=== PATIENT | female | born 2000 | race African-American/Black ===

== ENCOUNTER 2022-06-11 12:34 | Emergency (ER) | payer MEDICAID, SELFPAY ==
[2022-06-11 13:11] VITALS: BP 102/38; PULSE 62; RESP 16; TEMP 36.2; O2SAT 98; BMI 19.8
--- OUTSIDE RECORDS SUMMARY | 2022-06-11 14:29 | XMS_ITS | Continuity of Care Document ---
:2000 Author Organization [facility] Address [address] [place] [id number]- Care Team Providers Name Role Phone Not on Staff, PCP Primary Care Physician Unavailable Encounter [facility] Date(s): 08/25/19 - 08/25/[address] [address]- [facility] Attending Physician: Santos CORMIER, Lori Knowles Allergies, Adverse Reactions, Alerts No Known Medication Allergies Medications Flagyl 500 mg oral tablet 1 tablet = 500 mg, By Mouth, Every 12 hours, # 14 tablet, 0 Refills, Maintenance, 02/18/17 0:20:40, Tablet Start Date: 02/18/17 Stop Date: 02/25/17 Status: OrderedFlagyl 500 mg oral tablet 1 tablet = 500 mg, By Mouth, Every 12 hours, # 14 tablet, 0 Refills, Maintenance, 02/18/17 3:40:47, Tablet Start Date: 02/18/17 Stop Date: 02/25/17 Status: Ordered
--- OUTSIDE RECORDS SUMMARY | 2022-06-11 14:29 | XMS_ITS | Continuity of Care Document ---
:2000 Author Organization [facility] Address [address] [address]- Care Team Providers Name Role Phone Not on Staff, PCP Primary Care Physician Unavailable Encounter [facility] [place] Date(s): 04/03/20 - 05/03/[address] [address]- [facility] Allergies, Adverse Reactions, Alerts No Known Medication Allergies Medications ferrous sulfate 325 mg oral tablet 1 tablet = 325 mg, By Mouth, Every other day, # 90 tablet, 6 Refills, Maintenance, 04/09/20 14:22:00EDT, Tablet, [facility]/pharmacy #[id number], 169, cm, 04/09/20 14:06:00 EDT, Height, 60.84, kg, 02/20/20 11:55:00 EDT, Dry Weight Start Date: 04/09/20 Status: Orderedferrous sulfate 325 mg oral tablet 1 tablet = 325 mg, By Mouth, Every other day, # 30 tablet, 1 Refills, Maintenance, 02/22/20 17:59:00EDT, [id number], 169, cm, 02/20/20 11:55:00 EDT, Height, 60.84, kg, 02/20/20 11:55:00 EDT, Dry Weight Start Date: 02/22/20 Status: Orderedondansetron 4 mg oral tablet 1 tablet = 4 mg, By Mouth, Every 8 hours, PRN Nausea & Vomiting, 0 Refills, Maintenance, 02/13/20 15:43:00 EDT Start Date: 02/13/20 Status: OrderedPrental Gummies Prental Gummies, Refills 0, Maintenance, 02/13/20 15:44:00 EDT, Supply Start Date: 02/13/20 Status: OrderedUnisom 25 mg oral tablet See Instructions, 1/2 tablet By Mouth Daily 15 to 30 minutes before bed, # 14 tablet, 1 Refills, Maintenance, 02/20/20 11:58:00 EDT, [facility]/pharmacy #[id number], 169, cm, 02/20/20 11:55:00 EDT, Height, 60.84, kg, 02/20/20 11:55:00 EDT, Dry Weight Start Date: 02/20/20 Status: Ordered Problem List Condition Effective Dates Status Health Status Informant Anxiety(Confirmed)1 Active Genital HSV(Confirmed) Active History of depression(Confirmed) Active BMI 18.3, pre-- Active Underweight(Confirmed) 1Has therapist she sees PRN. No meds ever before though. Social History Social History Type Response Smoking Status Never (less than 100 in life time) entered on: 02/13/20 Sex
--- OUTSIDE RECORDS SUMMARY | 2022-06-11 14:29 | XMS_ITS | Continuity of Care Document ---
:2000 Author Organization [facility] Address [address] [address]- Care Team Providers Name Role Phone Not on Staff, PCP Primary Care Physician Unavailable Encounter [facility] [place] Date(s): 04/09/20 - 05/09/[address] [address]- [facility] Attending Physician: Miguel Ángel Martinez Admitting Physician: Miguel Ángel Martinez Referring Physician: AdmtrMiguel Ángel Allergies, Adverse Reactions, Alerts No Known Medication Allergies Medications ferrous sulfate 325 mg oral tablet 1 tablet = 325 mg, By Mouth, Every other day, # 90 tablet, 6 Refills, Maintenance, 04/09/20 14:22:00EDT, Tablet, [facility]/pharmacy #[id number], 169, cm, 04/09/20 14:06:00 EDT, Height, 60.84, kg, 02/20/20 11:55:00 EDT, Dry Weight Start Date: 04/09/20 Status: Orderedferrous sulfate 325 mg oral tablet 1 tablet = 325 mg, By Mouth, Every other day, # 30 tablet, 1 Refills, Maintenance, 02/22/20 17:59:00EDT, [facility]/pharmacy #[id number], 169, cm, 02/20/20 11:55:00 EDT, Height, [...] tablet, 1 Refills, Maintenance, 02/20/20 11:58:00 EDT, [id number], 169, cm, 02/20/20 11:55:00 EDT, Height, 60.84, kg, 02/20/20 11:55:00 EDT, Dry Weight Start Date: 02/20/20 Status: Ordered Problem List Condition Effective Dates Status Health Status Informant Anxiety(Confirmed)1 Active Genital HSV(Confirmed) Active History of depression(Confirmed) Active BMI 18.3, pre-- Active Underweight(Confirmed) 1Has therapist she sees PRN. No meds ever before though. Vital Signs Most recent to oldest [Reference Range]: 1 Height 169 cm (02/13/20 3:42 PM) Dry Weight 53.06 kg (02/13/20 3:42 PM) Social History Social History Type Response Smoking Status Never (less than 100 in life time) entered on: 02/13/20 Sex
--- OUTSIDE RECORDS SUMMARY | 2022-06-11 14:29 | XMS_ITS ---
:2000 Author Care Team Providers Name Role Phone JENNIFER LLANOS GIOVANNY Primary Care Provider [phone] Allergies Code Code System Name Reaction Severity Status Onset NKDA ? Notes: seasonal allergies Medications Name Status Start Date Stop Date ? ? Larissia 0.1 mg-20 mcg tablet Completed ? metronidazole 500 mg tablet Completed ? 10/31 TAKE 4 TABLETS BY MOUTH SINGLE DOSE nitrofurantoin monohydrate/macrocrystals 100 mg capsule Complete d ? 11/28/2019 ondansetron HCl 4 mg tablet Active ? Not available TAKE 1 TABLET BY MOUTH EVERY 8 HOURS Vitamin Active ? Not available one daily valacyclovir 500 mg tablet Completed ? 11/27 TAKE 1 TABLET BY MOUTH EVERY DAY Problems Name Status Onset Date Source ? Active 11/28/2019 ? Procedures None recorded. Results Lab Results Date Name Specimen Result Interpretation Description Value Range Status Address ? 11/28/2019 CBC W/ Auto ? Hgb 12.3 g/dL 12.0-16.0 Fi nal [facility] Diff g/dL [facility] (Lab): [address] [facility] ? ? Low Hct 35.6 % 36.0-48.0 % Final [facility] (Lab): [address] [facility] ? ? ? Wbc 7.2 10*3/uL 4.0-11.0 Final [facility] 10*3/uL [facility] (Lab): [address] [facility] ? ? ? Rbc 4.00 4.00-5.20 Final [facility] 10*6/uL 10*6/uL [facility] (Lab): [address] [facility] ? ? ? Mcv 89.0 fL 79.0-97.0 fL Final Met [facility] (Lab): [address] [facility] ? ? ? Mch 30.8 pg 27.0-32.0 pg Final [facility] (Lab): [address] , [place] ? ? ? Mchc 34.6 g/dL 32.0-36.0 Final [facility] g/dL [facility] (Lab): [address] , [place] ? ? ? Rdw 11.6 % 11.5-14.5 % Final [facility] (Lab): [address] , [place] ? ? ? Plt 196 10*3/uL 150-400 Final [facility] 10*3/uL [facility] (Lab): [address] , [place] ? ? ? Nucleated 0.0 /100WBC ? Final [facility] RBC % [facility] (Lab): [address] , [place] ? ? ? Seg% 71.2 % ? Final [facility] (Lab): [address] , [place] ? ? ? Lymph% 21.9 % ? Final [facility] (Lab): [address] , [place] ? ? ? Peach% 6.1 % ? Final [facility] (Lab): [address] , [place] ? ? ? Eos% 0.3 % ? Final [facility] (Lab): [address] , [place] ? ? ? Baso% 0.1 % ? Final [facility] (Lab): [address] , [place] ? ? ? Nucleated 0.0 /100WBC ? Final [facility] RBC % [facility] (Lab): [address] , [place] ? ? ? Segs# 5.1 10*3/uL 2.4-8.1 Final [facility] 10*3/uL [facility] (Lab): [address] , [place] ? ? ? Lymph# 1.6 10*3/uL 1.0-4.0 Final Met [facility]est 10*3/uL [facility] (Lab): [address] , [place] ? ? ? Peach# 0.4 10*3/uL 0.0-1.5 Final [facility] 10*3/uL [facility] (Lab): [address] , [place] ? ? ? Eos# 0.0 10*3/uL 0.0-0.5 Final [facility] 10*3[facility]uL [facility] (Lab): [address] [facility] ? ? ? Baso# 0.0 10*3/uL 0.0-0.1 Final [facility] 10*3/uL [facility] (Lab): [address] [facility] ? ? ? Note ? ? Final [facility] (Lab): [address] [facility] 11/28/2019 Urinalysis, ? UA Color dk yellow ? Fi nal [facility] Dipstick [facility] (Lab): [address] [facility] ? ? ABNORMAL UA turbid clear Final [facility] t Appearance Medica [facility] (Lab): [address] [facility] ? ? ABNORMAL Urine >=1.030 1.003-1.030 Final [facility] Specific Medical [place] [facility] (Lab): [address] [facility] ? ? ? UA pH 6.0 4.5-8.5 Final [facility] (Lab): [address] [facility] ? ? ABNORMAL UA >=300 mg/dL negative [facility] Protein mg/dL [facility] (Lab): [address] [facility] ? ? ? UA negative negative Final [facility] Glucose mg/dL mg/dL [facility] (Lab): [address] [facility] ? ? High UA Ketone 15 mg/dL negative Final [place] [facility] mg/dL [facility] (Lab): [address] [facility] ? ? ABNORMAL UA small negative Final [facility] Bilirubin [facility] (Lab): [address] [facility] ? ? ? UA Blood negative negative Final [facility] (Lab): [address] [facility] ? ? ? UA negative negative Final [facility] Nitrite [facility] (Lab): [address] [facility] ? ? ? UA Leuko negative negative Final [facility] (Lab): [address] [facility] ? ? ? Note ? ? Final [facility] (Lab): [address] [facility] 11/28/2019 Bilirubin, ? UA negative negative Final [facility] Qualitative Icterotest M edical , Urine Center [facility] (Lab): [address] , [place] ? ? ? Note ? ? Final [facility] (Lab): [address] , [place] 11/28/2019 Urinalysis, ? UA Squam few /hpf few /hpf [facility] Microscopic Epithelial M edical Cells Center [facility] (Lab): [address] , [place] ? ? ABNORMAL UA many urts few /hpf Final [facility] Amorphous /hpf Medical Sediment [facility] (Lab): [address] , [place] ? ? ABNORMAL UA few /hpf none seen Final [facility] Calcium /hpf Medical Oxalate [facility] (Lab): [address] , [place] ? ? ? Note ? ? Final [facility] (Lab): [address] , [place] 11/28/2019 ? Blood received received Final [facility] Profile Bank Draw Medica l Type/screen Cente r [facility] (Lab): [address] , [place] ? ? ? Blood ? ? Final [facility] (Lab): [address] , [place] ? ? ? Antibody negative ? Final [place] [facility] Screen [facility] (Lab): [address] , [place] ? ? ? Note ? ? Final [facility] (Lab): [address] [facility] 11/28/2019 Confirmatio ? Note ? ? Final M [facility] n Type [facility] (Lab): [address] , [place] 11/28/2019 Culture, URR ABNORMAL Urine ? ? Final [facility] Urine Culture [facility] (Lab): [address] , [place] ? ? URR ? Note ? ? Final [facility] (Lab): [address] [facility] 11/28/2019 HIV (1+2) ? HIV Ag Ab nonreactive nonreact chuck Final [facility] Antibodies, Medic al EIA, Serum, Cente r Reflex [place] HIV-1 [facility] (Lab): [address] , [place] ? ? ? Note ? ? Final [facility] (Lab): [address] [facility] 11/28/2019 Hemoglobin ? HGB negative negative Final [facility] (Hb) Solubility Medica l Electrophor Cente r esis, Blood [facility] (Lab): [address] [facility] ? ? ? Hgb a 97.8 % 96.4-98.8 % Final [facility] (Lab): [address] [facility] ? ? ? Hgb S 0.0 % 0.0 % Final [facility] (Lab): [address] [facility] ? ? ? Hgb C 0.0 % 0.0 % Final [facility] (Lab): [address] [facility] ? ? ? Hgb a2 2.2 % 1.8-3.2 % Final [facility] (Lab): [address] [facility] ? ? ? Hgb F 0.0 % 0.0-2.0 % Final [facility] (Lab): [address] [facility] ? ? ? HGB 0.0 % 0.0 % Final [facility] (Lab): [address] [facility] ? ? ? Interpret ? . Final [facility] (Lab): [address] [facility] ? ? ? Note ? ? Final [facility] (Lab): [address] [facility] 11/28/2019 RPR (Rapid ? Anti-trep negative negative F inal [facility] Plasma onemal IgG Medica l Re[facility]), [facility] Serum [facility] (Lab): [address] [facility] ? ? ? Note ? ? Final [facility] (Lab): [address] [facility] 11/28/2019 Rubella Igg ? Rubella immune ? [facility] Ab Screen, IgG Medica l Serum [facility] (Lab): [address] [facility] ? ? ? Note ? ? Final [facility] (Lab): [address] [facility] 11/28/2019 Varicella-z ? Varicella immune ? [facility] Zoster IgG Med ical Ab Screen, [place] Serum [facility] (Lab): [address] [facility] ? ? ? Note ? ? Final [facility] (Lab): [address] [facility] 11/28/2019 HBsAg ? Hbsag nonreactive nonreactive Fin al [facility] (Hepatitis Medica l [facility] Ag), Serum [facility] (Lab): [address] [facility] ? ? ? Note ? ? Final [facility] (Lab): [address] [facility] 11/28/2019 Pap Test, ? Cervix - ? ? Final [facility] Slide(s), [place] [facility] nd Cervical [facility] (Lab): [address] [facility] ? ? ? Note ? ? Final [facility] (Lab): [address] [facility] Past Encounters None recorded. Social History Tobacco Smoking Status Former Smoker Notes: quit whe n she found out she was occasional every other day Vaccine List Notes: no flushot Plan of Care Reminders Provider Appointments None recorded. ? ? Lab None recorded. ? ? Referral None recorded. ? ? Procedures None recorded. ? ? Surgeries None recorded. ? ? Imaging None recorded. ? ? Vitals Height Weight BMI Blood Pressure 170.18 cm 53.18 kg 18.4 kg/m2 118/73 mm[Hg]
--- NOTE | 2022-06-11 15:57 | ED_ITS ---
HPI - General Adult General Chief complaint: Extremity Problem Stated complaint: finger infected Time Seen by Provider: 06/11/22 14:21 Source: patient Mode of arrival: ambulatory Limitations: no limitations History of Present Illness HPI narrative: 21-year-old female who presents emergency department for evaluation of 2 chief complaints. First chief complaint is infected right middle finger, 2nd chief complaint is vaginal discharge, lower abdominal pain and vaginal odor. The patient states that approximately 1 week prior she pulled off a hangnail on her right middle finger. She states that approximately 1 or 2 days later she then developed swelling and pain in the right middle finger pain . She states that the fingers now swollen and slightly red. She states that the pain is a constant, throbbing pain which is mild to moderate intensity. Patient is a ([facility] Patient is also complaining of foul vaginal odor, vaginal discharge and lower abdominal pain. She states that she has had the symptoms for approximately 1 month. She describes the pain as a cramping sensation which is moderate intensity. She describes the discharge as thick and valverde in color. The patient denied fever, chills, nausea, vomiting, myalgias, arthralgias. She states she is sexually active and she has 1 sexual partner. She last had intercourse 1 month prior. MD complaint: Abdominal pain Onset (ago): month(s) (1) Location: abdomen and pelvis Radiation: non-radiation Severity: moderate Severity scale (1-10): 6 Quality: other (Cramping) Pain Consistency: intermittent Relieving factors: none Exacerbating factors: none Associated symptoms: other ([place] vaginal discharge) Treatments prior to arrival: none Related Data Previous Rx's Medication Instructions Recorded doxycycline hyclate 100 mg tablet 100 mg PO Q12H 14 days #28 tabs 06/11/22 metronidazole 500 mg tablet 500 mg PO BID 14 days #28 tabs 06/11/22 Allergies Allergy/AdvReac Type Severity Reaction Status Date / Time No Known Allergies Allergy Verified 06/11/22 14:26 Review of Systems Review of Systems: Yes all other systems are reviewed and are negative [facility] Past Medical History [facility] Narrative: Past medical history: Therapeutic x2, [facility] Social history: She denies tobacco, alcohol and drug use. Social History Social History Advance Directives: No Physical Exam ED Vital Signs: Vital Signs - 24 hr 06/11/22 13:11 Temperature 97.1 F Pulse Rate 62 Respiratory Rate 16 Blood Pressure 102/38 L Pulse Oximetry 98 Oxygen Delivery Method Room Air BMI result Body Mass Index 19.8 Const General: cooperative and no acute distress Orientation/consciousness: oriented to person and oriented to place Limitations: no limitations HENMT Head: Yes normal to inspection, Yes normocephalic and Yes atraumatic Ears: external ears normal General nose exam: Normal external nose present Face and sinus: Yes normal facial exam Mouth: Normal oral and palatal mucosa present Throat: Yes posterior oropharynx normal Eyes General: appearance normal, both eyes and all related structures Pupils: Equal, round and reactive pupils present Neck Neck: Yes normal visual inspection, Yes no lymphadenopathy, Yes trachea midline and Yes supple Chest Chest palpation & inspection: normal inspection of the chest and normal palpation of entire chest wall Resp Effort & Inspection: normal respiratory effort and able to speak in complete sentences Auscultation: clear to auscultation bilaterally Cardio Rate: regular rate Rhythm: regular rhythm Heart sounds: S1 normal heart sound present, S2 normal heart sound present and no murmurs GI Inspection: Yes normal to inspection Palpation (GI): Soft to palpation, Tenderness to palpation present (GI) in the LLQ (Mild) and suprapubicly (Mild) and no guarding Auscultation: normal bowel sounds General: Yes no CVA tenderness External Female Exam: normal external appearance Speculum Exam - Vagina: normal appearance of the vagina and abnormal vaginal discharge (Thick, valverde) Speculum Exam - Cervix: Cervical os closed, Abnormal cervical discharge present (Thick, valverde) and Cervical tenderness present (Moderate to severe) Bimanual exam- vagina & uterus: Cervical tenderness present (Moderate to severe), cervical motion tenderness (Moderate to severe) and Uterine tenderness (Moderate) Bimanual Exam- Adnexa, other: tender (Left greater than right) Back/Spine/Pelvis Back: no CVA tenderness Skin General skin exam: no rashes or lesions noted Neuro General: oriented to person and oriented to place Cranial nerves: Yes CN's II-XII intact bilaterally and Yes Equal, round and reactive pupils present Cognition (Neuro): normal cognition Motor exam (neuro): 5/5 motor strength present throughout Extrem Other: Right middle finger paronychial abscess, slight erythema around the abscess tender to palpation Psych Appearance: grossly normal Speech and movement: Normal speech and movement present Affect: normal affect Attitude: cooperative Thought process: Normal thought process present Thought content: Normal thought content present Course Course Course Narrative: 21-year-old female who presents emergency department for evaluation of 2 different complaints. Patient had a right middle finger paronychial abscess was incised and drained by me. Patient also complained of abdominal pain with an abnormal vaginal discharge. Her exam was consistent with pelvic inflammatory disease. The patient was treated with ceftriaxone/lidocaine 500 mg IM. She was prescribed doxycycline 100 mg twice a day for 14 days and metronidazole (Flagyl) 500 mg twice a day for 14 days. Patient was advised to take Tylenol and ibuprofen for pain. She will be referred to our on-call western philosophy professor for a follow-up in 10-14 days. She was also given access to the patient portal so she can check her results. Procedures Procedure Narrative Procedure Narrative: Incision and drainage of Right middle finger paronychial abscess: Patient gave me informed verbal consent to proceed. The patient's finger was prepped with Betadine and then anesthetized with 6 cc of 2% lidocaine using a digital block. Using a 11. Blade scalpel I incise the paronychial and a small amount of purulent material was expressed from the abscess cavity the abscess cavity was opened using hemostats. The cavity was too small for packing. A gauze dressing was applied. The patient tolerated the procedure well. Discharge Plan Discharge Clinical Impression: Paronychia of finger, Acute pelvic inflammatory disease Patient Disposition: Home, Self-Care Instructions: Paronychia (ED) Additional Instructions: You had an infection around the right index finger nail (paronychial abscess). This was cut open and drained here in the emergency department. I am prescribing doxycycline for your pelvic inflammatory disease and this will also treat the infection in your finger. Pelvic inflammatory disease instructions: Your presentation and physical findings are consistent with pelvic inflammatory disease (PID). Approximately 30% of the time, pelvic inflammatory disease is caused by sexually transmitted diseases such as Trichomonas, gonorrhea or chlamydia. Approximately 70% of the time, pelvic inflammatory disease is caused by abnormal bacteria (anaerobic bacteria) in your vagina that can cause an infection Medications You received ceftriaxone 500 mg intramuscularly here in the emergency department Take doxycycline 100 mg, 1 pill twice a day for 14 days. Take metronidazole 500 mg, 1 pill twice a day for 14 days. These 3 antibiotics treat sexually transmitted diseases such as gonorrhea, chlamydia and Trichomonas as well as anaerobic bacteria that can cause pelvic i nflammatory disease. Take ibuprofen 200 mg pills, 3 pills every 6 hours as needed for pain. Take Tylenol (acetaminophen) 500 mg pills, 2 pills every 4 to 6 hours as needed for pain. Follow-Up Follow-up with our gynecology on-call, Dr. Crane in 10-14 days. Pending laboratory tests: The doctor that follows up will need to review the following results with you: Bacterial vaginosis testing Gonorrhea and chlamydia (cervical swab) Trichomonas testing You can also check these results on the patient portal. Return precautions: Please return to the emergency department if your symptoms get worse if your pain does not go away in 24-48 hours or if you develop any symptoms that are concerning to you. Prescriptions: New metronidazole 500 mg tablet 500 mg PO BID 14 Days Qty: 28 0RF doxycycline hyclate 100 mg tablet 100 mg PO Q12H 14 Days Qty: 28 0RF Referrals: Edvin Crane MD [Physician] - 10 days (Pelvic inflammatory disease)
[2022-06-11] MEDS: cefTRIAXone sodium 500 MG, Lidocaine HCl 1 % MPF 1 ML IM (16:38)
[2022-06-11 16:55] LABS: UPreg QC Valid YES; Urine Pregnancy NEGATIVE (NEGATIVE)
[2022-06-11 18:46] LABS: CT PCR NOT DETECTED (Not Detect.); NG PCR NOT DETECTED (Not Detect.)
[2022-06-12 10:09] LABS: BV Int Neg Control Negative (Negative); BV Int Pos Control Positive (Positive)
== END 2022-06-11 16:41 | disposition home or self-care (01) ==
PROVIDERS: Emergency Provider Emergency Medicine Emergency Medical Services
DX: L03.011 Cellulitis of right finger (principal); N73.9 Female pelvic inflammatory disease, unspecified; Z79.899 Other long term (current) drug therapy
CPT/HCPCS: 81025; 87480; 87491; 87510; 87591; 87660; 96372; 99283; 99284; J0696

== ENCOUNTER 2022-12-21 14:47 | Emergency (ER) | payer OTHER, BC, SELFPAY ==
[2022-12-21 15:20] VITALS: BP 111/60; PULSE 87; RESP 16; TEMP 36.2; O2SAT 100; BMI 21.7
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
== END 2022-12-21 18:38 | disposition home or self-care (01) ==
PROVIDERS: Emergency Provider Emergency Medicine Emergency Medical Services
DX: S13.4XXS Sprain of ligaments of cervical spine, sequela (principal); S39.012A Strain of muscle, fascia and tendon of lower back, initial encounter; V43.52XA Car driver injured in collision with other type car in traffic accident, initial encounter; Y93.9 Activity, unspecified; Y92.410 Unspecified street and highway as the place of occurrence of the external cause; Y99.9 Unspecified external cause status
CPT/HCPCS: 99283